=== PATIENT | male | born 1945 | race African-American/Black ===

== ENCOUNTER 2017-01-11 11:15 | Emergency (ER) | payer OTHER ==
--- NOTE | 2017-01-11 12:49 | Diag Imaging Result Document ---
PROCEDURE NAME: SINUSES WATSON VIEW ONLY - 01/11/2017 SINGLE WATSON VIEW OF THE PARANASAL SINUSES: COMPARISON: None available. FINDINGS: The paranasal sinuses appear to be grossly clear. No definite air-fluid levels are identified. The mastoid air cells appear to be clear. Surrounding bony structures are grossly intact. IMPRESSION: Essentially unremarkable Watson view of the paranasal sinuses.
[2017-01-11] MEDS ORDERED: G.I. COCKTAIL PO ONE (13:10)
--- NOTE | 2017-01-11 13:27 | PROVIDER DOCUMENTATION ---
HPI-EENT General <Sridevi Loza - Last Filed: 01/11/17 13:27> - General Source: patient - History of Present Illness-EENT General EENT Location: reports: eye (R), eye (L), facial Quality of Pain: reports: pressure Severity: reports: mild Onset/Duration: reports: 2 days ago Timing: reports: still present Prearrival Treatment: Initiated over the counter meds (aleve) Associated Symptoms: reports: denies symptoms Similar Symptoms Previously?: No Recently seen or treated by another doctor?: No - Eyes Eye Problem Symptoms: reports: itching, other (watery eyes) - Ears Ear Problem Symptoms: reports: none <Cecilia Seth - Last Filed: 01/11/17 20:03> - General Chief Complaint: Sinus Pain Stated Complaint: HEADACHE Time Seen by Provider: 01/11/17 12:46 Allergies/Adverse Reactions: Patient Allergies Allergy/AdvReac Type Severity Reaction Status Date / Time No Known Allergies Allergy Verified 09/08/16 09:00 Home Medications: Home Medication List Medication Instructions Recorded Confirmed Last Taken Type Amlodipine Besylate [Norvasc] 5 mg PO DAILY 04/25/15 06/05/16 05/16/16 History Aspirin 81 mg PO DAILY 05/16/16 06/05/16 05/16/16 History Cyanocobalamin/Cobamamide [B12 1 tab PO DAILY 05/16/16 06/05/16 05/16/16 History 5,000 Mcg Microlozenge] Hydrocodone/Acetaminophen [[place] 1 each PO Q4-6H PRN PRN #14 tablet 05/16/1608/11 Unknown Rx 5-325 Tablet] Cholecalciferol (Vitamin D3) 2,000 mg PO DAILY 06/05/16 06/05/16 Unknown History [Vitamin D3] Metformin [Glucophage] 500 mg PO BID 06/05/16 06/05/16 Unknown History Omeprazole 40 mg PO DAILY 06/05/16 06/05/16 Unknown History Polyethylene Glycol 3350 [Miralax] 17 gm PO DAILY PRN PRN #60 06/05/16 Unknown Rx powd.pack Triamterene/Hydrochlorothiazid 37.5 mg PO DAILY 06/05/16 06/05/16 Unknown History [Triamterene-Hctz 37.5-25 mg Cp] Hydrocodone/Acetaminophen [[place] 1 each PO Q4-6H PRN PRN #20 tablet 08/12/16 Unknown Rx 5-325 Tablet] Fluticasone 50 Mcg Nasal [place] 1 spray KERRI BID #1 bottle 01/11/17 Unknown Rx [Flonase] Loratadine [Claritin] 10 mg PO DAILY #30 tablet 01/11/17 Unknown Rx - History of Present Illness-EENT General Nature of Presenting Problem: Patient presents to ER with c/o headache, watery eyes, and facial pressure for the past 2 days. He did take aleve which helped some. (Cecilia Seth) Review of Systems - Adult - REVIEW OF SYSTEMS - ADULT Constitutional: reports: no symptoms reported Eyes: reports: no symptoms reported Ears, Nose, Mouth & Throat: reports: see HPI, sinus problem Cardiovascular: reports: no symptoms reported Respiratory: reports: no symptoms reported Gastrointestinal: reports: no symptoms reported Genitourinary: reports: no symptoms reported Musculoskeletal: reports: no symptoms reported Integumentary: reports: no symptoms reported Neurological: reports: no symptoms reported, headache/migraines Psychiatric: reports: no symptoms reported Endocrine: reports: no symptoms reported Hematologic/Lymphatic: reports: no symptoms reported Allergic/Immunologic: reports: no symptoms reported All Other Systems: Reviewed and Negative <Cecilia Seth - Last Filed: 01/11/17 20:03> Past History - Adult - PAST MEDICAL HISTORY-ADULT Major Childhood Illnesses: reports: denies history Cardiovascular: reports: HTN Respiratory: reports: denies history Gastrointestinal: reports: GERD Obstetrical/Gynecological: reports: denies history Genitourinary: reports: denies history Musculoskeletal: reports: other Neurological: reports: denies history Endocrine/Immune: reports: denies history Other Conditions: reports: denies history - PRIOR SURGERIES/PROCEDURES Surgical/Procedure History: reports: orthopedic (extremity), other (right BKA) - IMMUNIZATION STATUS Childhood Immunizations: See Nurse Assessment Flu Vaccine: See Nurse Assessment - FAMILY HISTORY Family History: reviewed, not pertinent <Sridevi Loza - Last Filed: 01/11/17 13:27> - PAST MEDICAL HISTORY-ADULT Review of Records: reports: Old Records Reviewed, Nursing Assessment Review, Medications Reviewed, Social history reviewed & non-contributory. Cardiovascular: reports: HTN Gastrointestinal: reports: GERD Endocrine/Immune: reports: Diabetes - PRIOR SURGERIES/PROCEDURES Surgical/Procedure History: reports: back/neck (back x 5), other (right BKA; shoulder sx; carpal tunnel sx; ) - IMMUNIZATION STATUS Childhood Immunizations: See Nurse Assessment Flu Vaccine: See Nurse Assessment - SOCIAL HISTORY Smoking: cigarettes, less than 1 pack/day (1/2 ppd) Provider spent 3-5 mins advising pt. on dangers of tobacco.: Discussed manners to quit use, and f/u contacts for add'l counseling. Substance Use: none/never, denies Alcohol Use Frequency: never Living Situation: family <Cecilia Seth - Last Filed: 01/11/17 20:03> Physical Exam- EENT - Physical Exam EENT Initial Vital Signs Reviewed: Yes General Appearance: appears well, alert, no apparent distress Eye Exam: bilateral eye: normal inspection, PERRL, EOMI Ear Exam: bilateral ear: auricle normal, canal normal, TM normal Nasal Exam: sinus tenderness Throat Exam: normal mouth inspection, other (mild pharyngeal erythema) Respiratory: lungs clear, normal breath sounds, no respiratory distress Cardiovascular: normal peripheral pulses Extremity: normal gait, normal inspection Integumentary: normal color, normal turgor, warm/dry Neurologic: grossly normal Psych/Mental Status: normal mood/affect, normal thought content, normal thought process, oriented x 3 <Cecilia Seth - Last Filed: 01/11/17 20:03> Progress <Sridevi Loza - Last Filed: 01/11/17 13:27> - REASSESSMENT Reassessment #1 Time Reassessed: 14:00 Status: unchanged - XRAY 1 XRAY Study: other (sinus) Impression: Normal (essentially unremarkable view of parasinus) XRAY Interpretation: Interpreted by Dr. Pinto <Cecilia Seth - Last Filed: 01/11/17 20:03> - PLAN OF CARE/RESULTS Progress/Plan/Lab Results: 1400-Discussed results/dx/tx/discharge and f/u instructions; patient verbalized understanding. Laboratory Tests 01/11/17 13:25 Influenza A (Rapid) NEGATIVE Influenza B (Rapid) NEGATIVE Orders Category Date Time Status SINUSES ALAN[place] VIEW ONLY [RAD] Stat Exams 01/11/17 11:[address] Stat Lab 01/11/17 13:25 Completed Lido/Mar Alk/Al&mg Hydrox [G.i. Cocktail] Med 01/11/17 13:10 Discontinued 30 ml PO NOW ONE Vital Signs - 24 hr 01/11/17 01/11/17 11:27 14:20 Temperature 98.4 F 98.9 F Pulse Rate 98 H 70 Respiratory 18 18 Rate Blood Pressure 154/73 150/70 O2 Sat by Pulse 98 100 Oximetry (Cecilia Seth) Departure <Sridevi Loza - Last Filed: 01/11/17 13:27> - Departure Time of Disposition Order: 14:14 Certified Medical Emergency: Emergent <Cecilia Seth - Last Filed: 01/11/17 20:03> - Departure DIAGNOSIS: Nasal sinus congestion, Viral illness, Watery eyes Disposition: HOME 01 Condition: Good Additional Instructions: Follow up with primary care doctor. Take medications as prescribed. Stay well hydrated. ED Follow Up Instructions: You have been treated by a care provider in the Emergency Department. These instructions are being provided to you so you can have an understanding of how to care for yourself upon discharge. Upon discharge from the Emergency Department, you are responsible for making arrangements for follow-up care by a physician of your choice. Take all prescribed medications as directed. Return to the Emergency Department immediately for any new or worsening symptoms. You may call the Physician Referral phone number at [phone] to obtain a list of Physicians who are taking new patients. Prescriptions: Loratadine [Claritin] 10 mg PO DAILY #30 tablet Fluticasone 50 Mcg Nasal [place] [Flonase] 1 spray KERRI BID #1 bottle Referrals: Fareed Rudolph [Primary Care Provider] - Instructions: Viral Infections, [id number], Fluticasone nasal spray, Loratadine tablets Attestation - Scribe Verification/Attestation Scribe:: Sridevi Loza Acting as Scribe for:: Cecilia Seth Scribe documention review:: This chart was documented by a scribe and accurately reflects the service the provider performed and the decisions made by the provider. <Sridevi Loza - Last Filed: 01/11/17 13:27> - Physician/ TERRY Attestation Patient care was provided by Advanced Practice Provider:: Yes Advanced Practice Provider:: Cecilia Seth Advanced Practice Provider documentation review:: The Mid-level provider documentation, treatment plan and medical decision making was reviewed by the physician who agrees with all treatment and medical decision making by the MLP. <Cecilia Seth - Last Filed: 01/11/17 20:03> Physician Attestation - Physician Attestation I, the provider, attest to the following statement:: Cecilia Seth Physician documentation Attestation:: This documentation recorded by the scribe accurately reflects the service I personally performed and the decisions made by me. <Cecilia Seth - Last Filed: 01/11/17 20:03>
[2017-01-11 14:25] VITALS: BP 150/70
== END 2017-01-11 14:20 | disposition home or self-care (01) ==
LOC: P.ED 11:15
DX: R09.81 Nasal congestion (principal); B34.9 Viral infection, unspecified; H57.8 Other specified disorders of eye and adnexa; H57.13 Ocular pain, bilateral; R51 Headache; J34.89 Other specified disorders of nose and nasal sinuses; I10 Essential (primary) hypertension; K21.9 Gastro-esophageal reflux disease without esophagitis; Z79.899 Other long term (current) drug therapy; E11.9 Type 2 diabetes mellitus without complications; Z79.82 Long term (current) use of aspirin; Z89.511 Acquired absence of right leg below knee
CPT/HCPCS: 70210; 87804; 99283